=== PATIENT | female | born 1980 | race Caucasian/White ===

== ENCOUNTER 2019-10-09 16:19 | Outpatient (CLI) | payer OTHER ==
[2019-10-09] MEDS ORDERED: GADOTERATE 5 MMOL/10 ML VIAL ONE (17:06)
== END 2019-10-09 23:59 | disposition home or self-care (01) ==
LOC: RAD 16:19
PROVIDERS: ATTEND Radiology Diagnostic Radiology
DX: C79.31 Secondary malignant neoplasm of brain (principal)
CPT/HCPCS: 70553; A9575

== ENCOUNTER 2020-01-11 15:00 | Inpatient (IN) | payer OTHER ==
[~2020-01-11] VITALS: Ht 160 cm; Wt 45.1 kg
[2020-01-11] MEDS ORDERED: LEVETIRACETAM 500 MG TABLET ONE (15:10)
[2020-01-11] MEDS ORDERED: DEXAMETHASONE 4 MG TABLET ONE (15:10)
[2020-01-11] MEDS ORDERED: DEXAMETHASONE 4 MG/ML, 1ML ONE (15:13)
[2020-01-11] MEDS ORDERED: SODIUM CHLORIDE 0.9% 1,000ML IVBOLUS ONE (16:00)
[2020-01-11] MEDS ORDERED: SODIUM CHLORIDE FLUSH 10ML SYR IVF ONE (16:00)
[2020-01-11] MEDS ORDERED: DEXAMETHASONE 4 MG/ML, 1ML IVPush ONE (16:00)
[2020-01-11] MEDS ORDERED: LEVETIRACETAM 1,000 MG in SODIUM CHLORIDE 0.9% 100 ML IV ONE (16:00)
[2020-01-11 16:03] LABS: ALBUMIN 2.6 g/dL (3.4-5.0); ANION GAP 7 mmol/L (5-15); CALCIUM 8.5 mg/dL (8.5-10.1); CHLORIDE 102 mmol/L (98-107)
[2020-01-11 16:06] LABS: ALANINE AMINOTRANSFERASE 19 U/L (12-78); ALKALINE PHOSPHATASE 83 U/L (45-117); BILIRUBIN,TOTAL 0.4 mg/dL (0.2-1.0); CREATININE 0.55 mg/dL (0.55-1.02); TOTAL PROTEIN 6.8 g/dL (6.4-8.2)
[2020-01-11 16:11] LABS: HCG UR SG 1.013 (1.003-1.030)
[2020-01-11 16:12] LABS: MICROSCOPIC INDICATED
--- NOTE | 2020-01-11 16:15 | NUR ---
ANGELO INFUSED, NS BOLUS PER MAR. DURBIN IN ROOM FOR EVAL. PT TO MRI.
--- NOTE | 2020-01-11 16:19 | NUR ---
LAB CALLED CRITICAL PLATELETS OF [phone],000
[2020-01-11 16:20] LABS: MD YES; MEAN CORPUSCULAR HEMOGLOBIN 32.1 pg (27.0-34.8); MEAN CORPUSCULAR HGB CONC 33.6 g/dL (32.4-35.8); MEAN CORPUSCULAR VOLUME 95.5 fL (80-100); MEAN PLATELET VOLUME 8.1 fL (7.4-10.4); RED BLOOD COUNT 2.97 x10^6/uL (3.82-5.3); RED CELL DISTRIBUTION WIDTH 18.2 % (9.6-15.2)
[2020-01-11 16:20] LABS: CULTURE INDICATED? NO
[2020-01-11 16:23] LABS: PLATELET COUNT 41 x10^3/uL (130-400)
--- NOTE | 2020-01-11 16:23 | NUR ---
Patient out of room, into MRI. Finished antiepileptic medication. Awaiting MRI read.
[2020-01-11 16:26] LABS: BAND#(MANUAL) 0.94 x10^3/uL; BANDS%(MANUAL) 26 % (0-7); LYMPH#(MANUAL) 0.04 x10^3/uL (1-3.4); LYMPHS% (MANUAL) 1 % (22-44); MONOS#(MANUAL) 0.07 x10^3/uL (0.3-2.7); MONOS% (MANUAL) 2 % (2-9); SEG#(MANUAL) 2.56 x10^3/uL (1.8-6.8); SEGS% (MANUAL) 71 % (42-75)
[2020-01-11 16:28] LABS: <PLATELET ESTIMATE> DECREASED; <PLT MORPHOLOGY> NORMAL PLT MORPH; ANISOCYTOSIS 1+; POLYCHROMASIA 1+
--- NOTE | 2020-01-11 18:06 | NUR ---
Provider at bedside, updated patient on readings for MRI. Informed of admission. Awaiting disposition
--- NOTE | 2020-01-11 18:12 | NUR ---
Dr. Mendoza at [facility] paged for Dr. Carlos. Awaiting call back.
--- NOTE | 2020-01-11 18:27 | NUR ---
Dr. Mendoza's office called back, spoke with Dr. Carlos.
[2020-01-11] MEDS ORDERED: CEFTRIAXONE PMX 1GM/50ML 50 ML IV ONE (19:00)
--- NOTE | 2020-01-11 19:01 | NUR ---
Gave report to Nelida. awaiting admission to medical oncology floor.
--- NOTE | 2020-01-11 19:07 | NUR ---
PT RESTING ON GURNEY, REPORTS 0/10 PAIN, DENIES ANY NEEDS AT THIS TIME. PT UPDATED ON POC. LAB IN ROOM TO DRAW BLOOD CULTURES AT THIS TIME. CALL LIGHT WITHIN REACH, X2 RAILS RAISED AND PADDED SEIZURE PRECAUTIONS IN PLACE. MONITORING IN PLACE.
[2020-01-11] MEDS ORDERED: CEFTRIAXONE PMX 1GM/50ML 50 ML ONE (19:19)
[2020-01-11] MEDS ORDERED: LEVETIRACETAM 500 MG in SODIUM CHLORIDE 0.9% 100 ML IV SCH (19:30)
[2020-01-11 20:30] VITALS: BP 90/65
[2020-01-11] MEDS ORDERED: ACETAMINOPHEN 325 MG TABLET PO PRN (20:30)
[2020-01-11] MEDS ORDERED: POLYETHYLENE GLYCOL 17 GM PACKET PO PRN (20:30)
[2020-01-11] MEDS ORDERED: BISACODYL 10 MG SUPP PR PRN (20:30)
[2020-01-11] MEDS ORDERED: DOCUSATE 100 MG CAPSULE PO PRN (20:30)
[2020-01-11] MEDS ORDERED: morphine SULFATE 10 MG/ML, 1ML IVPush PRN (20:30)
[2020-01-11] MEDS ORDERED: HYDROcodone/APAP 5/325 TABLET PO PRN (20:30)
[2020-01-11] MEDS ORDERED: ASPI-515 PO (21:35)
[2020-01-11] MEDS ORDERED: DOXE10OR2 NG (21:35)
[2020-01-11] MEDS ORDERED: GABA300S PO/NG (21:35)
[2020-01-11] MEDS ORDERED: VITA100C8 NG (21:35)
[2020-01-11] MEDS ORDERED: MELA10TA10 NG (21:35)
[2020-01-11] MEDS ORDERED: PENT400T12 PO (21:35)
[2020-01-11] MEDS ORDERED: LEVE500S9 NG (21:35)
[2020-01-11] MEDS ORDERED: DEXA10PO2 NG (21:35)
[2020-01-11] MEDS: DEXAMETHASONE 4 MG/ML, 1ML IVPush SCH (22:30)
[2020-01-11] MEDS: MELATONIN 5 MG TABLET NG SCH (22:30)
[2020-01-11] MEDS ORDERED: KETOROLAC 30 MG/1 ML IVPush SCH (23:00)
[2020-01-12] VITALS (7 sets, daily range): BP systolic 83–104; BP diastolic 54–71
[2020-01-12] MEDS: HYDROcodone/APAP 7.5-325MG/15ML UDC PO PRN ×4 (00:40→20:04)
[2020-01-12] MEDS: DEXAMETHASONE 4 MG/ML, 1ML IVPush SCH ×4 (04:18→21:53)
[2020-01-12] MEDS: LEVETIRACETAM 500 MG in SODIUM CHLORIDE 0.9% 100 ML IV SCH ×2 (04:18→16:15)
[2020-01-12] MEDS ORDERED: DIAZEPAM 5 MG/ML, 2ML IVPush PRN (05:00)
[2020-01-12] MEDS ORDERED: DIAZEPAM 5 MG/ML, 2ML IV ONE (05:00)
[2020-01-12] MEDS ORDERED: KETOROLAC 30 MG/1 ML IVPush PRN (05:00)
[2020-01-12 05:24] LABS: MEAN CORPUSCULAR HGB CONC 33.5 g/dL (32.4-35.8); MEAN CORPUSCULAR VOLUME 95.7 fL (80-100); RED BLOOD COUNT 2.51 x10^6/uL (3.82-5.3); RED CELL DISTRIBUTION WIDTH 17.8 % (9.6-15.2)
[2020-01-12 05:25] LABS: ALANINE AMINOTRANSFERASE 16 U/L (12-78); ALBUMIN 2.3 g/dL (3.4-5.0); ANION GAP 5 mmol/L (5-15); CALCIUM 8.7 mg/dL (8.5-10.1); CHLORIDE 104 mmol/L (98-107)
[2020-01-12 05:36] LABS: ALKALINE PHOSPHATASE 59 U/L (45-117); BILIRUBIN,TOTAL 0.3 mg/dL (0.2-1.0); CREATININE 0.35 mg/dL (0.55-1.02); TOTAL PROTEIN 6.1 g/dL (6.4-8.2)
[2020-01-12 05:59] LABS: MD YES
[2020-01-12 06:01] LABS: ANISOCYTOSIS 1+; BAND#(MANUAL) 0.19 x10^3/uL; BANDS%(MANUAL) 8 % (0-7); LYMPH#(MANUAL) 0.19 x10^3/uL (1-3.4); LYMPHS% (MANUAL) 8 % (22-44); MONOS#(MANUAL) 0.07 x10^3/uL (0.3-2.7); MONOS% (MANUAL) 3 % (2-9); POLYCHROMASIA 1+; SEG#(MANUAL) 1.94 x10^3/uL (1.8-6.8); SEGS% (MANUAL) 81 % (42-75)
[2020-01-12 06:02] LABS: <PLATELET ESTIMATE> DECREASED; <PLT MORPHOLOGY> NORMAL PLT MORPH; MEAN PLATELET VOLUME 8.8 fL (7.4-10.4)
[2020-01-12 06:04] LABS: PLATELET COUNT 26 x10^3/uL (130-400)
[2020-01-12] MEDS: VITAMIN E 400 UNITS CAPSULE NG SCH (07:50)
[2020-01-12] MEDS: GABAPENTIN 300 MG CAPSULE PO SCH ×3 (07:50→20:04)
[2020-01-12 08:58] LABS: INTERNATIONAL NORMALIZED RATIO 1.05 (0.93-1.1); PROTHROMBIN TIME 11.1 Seconds (9.6-11.5)
[2020-01-12] MEDS ORDERED: PENTOXIFYLLINE 400 MG TABLET.ER PO SCH (09:00)
[2020-01-12] MEDS ORDERED: ASPIRIN 81 MG TABLET EC PO SCH (09:00)
[2020-01-12] MEDS: TBO-FILGRASTIM 300 MCG/0.5 ML SQ SCH (09:33)
[2020-01-12 16:46] LABS: MEAN CORPUSCULAR HEMOGLOBIN 32.4 pg (27.0-34.8); MEAN CORPUSCULAR HGB CONC 33.8 g/dL (32.4-35.8); MEAN CORPUSCULAR VOLUME 95.9 fL (80-100); PLATELET COUNT 26 x10^3/uL (130-400); RED BLOOD COUNT 2.42 x10^6/uL (3.82-5.3); RED CELL DISTRIBUTION WIDTH 17.9 % (9.6-15.2)
[2020-01-12 16:48] LABS: MD YES
[2020-01-12 16:52] LABS: BAND#(MANUAL) 0.43 x10^3/uL; BANDS%(MANUAL) 16 % (0-7); LYMPH#(MANUAL) 0.22 x10^3/uL (1-3.4); LYMPHS% (MANUAL) 8 % (22-44); MONOS#(MANUAL) 0.19 x10^3/uL (0.3-2.7); MONOS% (MANUAL) 7 % (2-9); NRBC % (MANUAL) 1 % (0-1); SEG#(MANUAL) 1.86 x10^3/uL (1.8-6.8); SEGS% (MANUAL) 69 % (42-75)
[2020-01-12 16:53] LABS: <PLATELET ESTIMATE> DECREASED; <PLT MORPHOLOGY> NORMAL PLT MORPH; ANISOCYTOSIS 1+; POLYCHROMASIA 1+
[2020-01-12 16:54] LABS: TOXIC GRAN 1+
[2020-01-12] MEDS: DOXEPIN 10 MG CAPSULE NG SCH (20:04)
[2020-01-12] MEDS: MELATONIN 5 MG TABLET NG SCH (20:05)
[2020-01-13 02:33] VITALS: BP 95/61
[2020-01-13] MEDS: HYDROcodone/APAP 7.5-325MG/15ML UDC PO PRN ×2 (02:44→15:36)
[2020-01-13] MEDS: LEVETIRACETAM 500 MG in SODIUM CHLORIDE 0.9% 100 ML IV SCH ×2 (04:13→15:43)
[2020-01-13] MEDS: DEXAMETHASONE 4 MG/ML, 1ML IVPush SCH ×4 (04:14→22:13)
[2020-01-13 06:57] VITALS: BP 109/72
[2020-01-13] MEDS: VITAMIN E 400 UNITS CAPSULE NG SCH (09:00)
[2020-01-13] MEDS ORDERED: PANTOPRAZOLE 40MG TABLET PO SCH (09:00)
[2020-01-13] MEDS: TBO-FILGRASTIM 300 MCG/0.5 ML SQ SCH (09:00)
[2020-01-13] MEDS ORDERED: LOPERAMIDE 2 MG CAPSULE PO PRN (09:00)
[2020-01-13] MEDS ORDERED: LOPERAMIDE 1 MG/5 ML, 10ML UDC NG PRN (09:00)
[2020-01-13] MEDS: GABAPENTIN 300 MG CAPSULE PO SCH ×3 (09:11→20:39)
[2020-01-13] MEDS: PANTOPRAZOLE 40 MG IV IVPush SCH (09:11)
[2020-01-13] MEDS: LORazepam 1MG TABLET NG PRN ×3 (09:19→20:46)
[2020-01-13 09:55] LABS: MEAN CORPUSCULAR HEMOGLOBIN 32.3 pg (27.0-34.8); MEAN CORPUSCULAR HGB CONC 33.2 g/dL (32.4-35.8); MEAN CORPUSCULAR VOLUME 97.5 fL (80-100); MEAN PLATELET VOLUME 8.8 fL (7.4-10.4); RED BLOOD COUNT 2.81 x10^6/uL (3.82-5.3); RED CELL DISTRIBUTION WIDTH 18.1 % (9.6-15.2)
[2020-01-13 10:03] LABS: PLATELET COUNT 27 x10^3/uL (130-400)
[2020-01-13 10:07] LABS: MD YES
[2020-01-13 10:12] LABS: ANISOCYTOSIS 1+; BAND#(MANUAL) 0.14 x10^3/uL; BANDS%(MANUAL) 5 % (0-7); LYMPH#(MANUAL) 0.34 x10^3/uL (1-3.4); LYMPHS% (MANUAL) 12 % (22-44); MONOS#(MANUAL) 0.03 x10^3/uL (0.3-2.7); MONOS% (MANUAL) 1 % (2-9); SEGS% (MANUAL) 82 % (42-75)
[2020-01-13 10:13] LABS: <PLATELET ESTIMATE> DECREASED; <PLT MORPHOLOGY> NORMAL PLT MORPH; POLYCHROMASIA 1+; TOXIC GRAN 1+
[2020-01-13 13:00] VITALS: BP 97/67
[2020-01-13] MEDS ORDERED: ALUMINUM/MAG/SIMETHICONE 30 ML UDC PO PRN (15:30)
[2020-01-13 16:35] LABS: MEAN CORPUSCULAR HEMOGLOBIN 32.5 pg (27.0-34.8); MEAN CORPUSCULAR HGB CONC 33.7 g/dL (32.4-35.8); MEAN CORPUSCULAR VOLUME 96.6 fL (80-100); MEAN PLATELET VOLUME 8.2 fL (7.4-10.4); RED BLOOD COUNT 2.66 x10^6/uL (3.82-5.3); RED CELL DISTRIBUTION WIDTH 18.3 % (9.6-15.2)
[2020-01-13 16:49] LABS: PLATELET COUNT 32 x10^3/uL (130-400)
[2020-01-13 17:28] LABS: MD YES
[2020-01-13 17:31] LABS: BAND#(MANUAL) 0.43 x10^3/uL; BANDS%(MANUAL) 16 % (0-7); LYMPH#(MANUAL) 0.16 x10^3/uL (1-3.4); LYMPHS% (MANUAL) 6 % (22-44); MONOS#(MANUAL) 0.03 x10^3/uL (0.3-2.7); MONOS% (MANUAL) 1 % (2-9); SEG#(MANUAL) 2.08 x10^3/uL (1.8-6.8); SEGS% (MANUAL) 77 % (42-75); TOXIC GRAN 1+
[2020-01-13 17:32] LABS: <PLATELET ESTIMATE> DECREASED; <PLT MORPHOLOGY> NORMAL PLT MORPH; ANISOCYTOSIS 1+; POLYCHROMASIA 1+
[2020-01-13 17:33] LABS: OVALOCYTES 1+; TEAR DROPS 1+
[2020-01-13 20:20] VITALS: BP 96/63
[2020-01-13] MEDS: DOXEPIN 10 MG CAPSULE NG SCH (20:39)
[2020-01-13] MEDS: MELATONIN 5 MG TABLET NG SCH (20:40)
[2020-01-14 02:33] VITALS: BP 105/71
[2020-01-14] MEDS: LEVETIRACETAM 500 MG in SODIUM CHLORIDE 0.9% 100 ML IV SCH ×2 (04:29→14:46)
[2020-01-14] MEDS: DEXAMETHASONE 4 MG/ML, 1ML IVPush SCH ×4 (04:29→19:56)
[2020-01-14 06:07] LABS: MEAN CORPUSCULAR HEMOGLOBIN 32.8 pg (27.0-34.8); MEAN CORPUSCULAR HGB CONC 33.9 g/dL (32.4-35.8); MEAN CORPUSCULAR VOLUME 96.9 fL (80-100); RED BLOOD COUNT 2.35 x10^6/uL (3.82-5.3); RED CELL DISTRIBUTION WIDTH 18.4 % (9.6-15.2)
[2020-01-14 06:12] LABS: ALANINE AMINOTRANSFERASE 13 U/L (12-78); ALBUMIN 2.4 g/dL (3.4-5.0); ANION GAP 6 mmol/L (5-15); CALCIUM 8.8 mg/dL (8.5-10.1); CHLORIDE 102 mmol/L (98-107)
[2020-01-14 06:14] LABS: ALKALINE PHOSPHATASE 58 U/L (45-117); BILIRUBIN,TOTAL 0.5 mg/dL (0.2-1.0)
[2020-01-14 06:44] LABS: MD YES
[2020-01-14 06:45] LABS: MEAN PLATELET VOLUME 8.6 fL (7.4-10.4)
[2020-01-14 06:47] LABS: PLATELET COUNT 24 x10^3/uL (130-400)
[2020-01-14 06:48] LABS: <PLATELET ESTIMATE> DECREASED; <PLT MORPHOLOGY> NORMAL PLT MORPH; ANISOCYTOSIS 1+; BAND#(MANUAL) 0.06 x10^3/uL; BANDS%(MANUAL) 3 % (0-7); EOS#(MANUAL) 0.04 x10^3/uL (0.0-0.4); EOS% (MANUAL) 2 % (1-7); LYMPH#(MANUAL) 0.34 x10^3/uL (1-3.4); LYMPHS% (MANUAL) 17 % (22-44); OVALOCYTES 1+; POLYCHROMASIA 1+; SEG#(MANUAL) 1.56 x10^3/uL (1.8-6.8); SEGS% (MANUAL) 78 % (42-75); TOXIC GRAN 1+
[2020-01-14 06:49] LABS: TEAR DROPS 1+
[2020-01-14 07:06] VITALS: BP 98/62
[2020-01-14] MEDS: VITAMIN E 400 UNITS CAPSULE NG SCH (07:58)
[2020-01-14] MEDS: LORazepam 1MG TABLET NG PRN ×3 (08:09→19:59)
[2020-01-14] MEDS: PANTOPRAZOLE 40 MG IV IVPush SCH (08:10)
[2020-01-14] MEDS: GABAPENTIN 300 MG CAPSULE PO SCH ×3 (08:10→19:56)
[2020-01-14] MEDS: HYDROcodone/APAP 7.5-325MG/15ML UDC PO PRN ×3 (09:40→20:52)
[2020-01-14 12:26] VITALS: BP 96/59
[2020-01-14 17:28] LABS: MEAN CORPUSCULAR HEMOGLOBIN 32.1 pg (27.0-34.8); MEAN CORPUSCULAR HGB CONC 33.4 g/dL (32.4-35.8); MEAN CORPUSCULAR VOLUME 96.1 fL (80-100); MEAN PLATELET VOLUME 8.7 fL (7.4-10.4); RED BLOOD COUNT 2.36 x10^6/uL (3.82-5.3); RED CELL DISTRIBUTION WIDTH 18.1 % (9.6-15.2)
[2020-01-14 17:31] LABS: PLATELET COUNT 28 x10^3/uL (130-400)
[2020-01-14 17:38] LABS: MD YES
[2020-01-14 17:47] LABS: ANISOCYTOSIS 1+; BAND#(MANUAL) 0.16 x10^3/uL; BANDS%(MANUAL) 7 % (0-7); EOS#(MANUAL) 0.07 x10^3/uL (0.0-0.4); EOS% (MANUAL) 3 % (1-7); LYMPH#(MANUAL) 0.14 x10^3/uL (1-3.4); LYMPHS% (MANUAL) 6 % (22-44); MONOS#(MANUAL) 0.02 x10^3/uL (0.3-2.7); MONOS% (MANUAL) 1 % (2-9); OVALOCYTES 1+; POLYCHROMASIA 1+; SEG#(MANUAL) 1.91 x10^3/uL (1.8-6.8); SEGS% (MANUAL) 83 % (42-75)
[2020-01-14 17:48] LABS: <PLATELET ESTIMATE> DECREASED; <PLT MORPHOLOGY> NORMAL PLT MORPH; TEAR DROPS 1+; TOXIC GRAN 1+
[2020-01-14 19:05] VITALS: BP 102/65
[2020-01-14] MEDS: MELATONIN 5 MG TABLET NG SCH (19:50)
[2020-01-14] MEDS: DOXEPIN 10 MG CAPSULE NG SCH (19:56)
[2020-01-15 02:59] VITALS: BP 105/69
[2020-01-15] MEDS: DEXAMETHASONE 4 MG/ML, 1ML IVPush SCH ×3 (03:21→23:04)
[2020-01-15] MEDS: LORazepam 1MG TABLET NG PRN ×4 (03:21→20:50)
[2020-01-15] MEDS: LEVETIRACETAM 500 MG in SODIUM CHLORIDE 0.9% 100 ML IV SCH ×2 (03:21→16:51)
[2020-01-15 05:24] LABS: ALBUMIN 2.3 g/dL (3.4-5.0); CHLORIDE 103 mmol/L (98-107)
[2020-01-15 05:32] LABS: ALANINE AMINOTRANSFERASE 12 U/L (12-78); ALKALINE PHOSPHATASE 53 U/L (45-117); ANION GAP 5 mmol/L (5-15); BILIRUBIN,TOTAL 0.5 mg/dL (0.2-1.0); CALCIUM 8.4 mg/dL (8.5-10.1); CREATININE 0.34 mg/dL (0.55-1.02); TOTAL PROTEIN 5.8 g/dL (6.4-8.2)
[2020-01-15 05:39] LABS: MEAN CORPUSCULAR HEMOGLOBIN 32.5 pg (27.0-34.8); MEAN CORPUSCULAR HGB CONC 33.7 g/dL (32.4-35.8); MEAN CORPUSCULAR VOLUME 96.6 fL (80-100); MEAN PLATELET VOLUME 8.4 fL (7.4-10.4); RED BLOOD COUNT 2.31 x10^6/uL (3.82-5.3)
[2020-01-15 05:42] LABS: PLATELET COUNT 37 x10^3/uL (130-400)
[2020-01-15 06:17] LABS: MD YES
[2020-01-15 06:22] LABS: BAND#(MANUAL) 0.14 x10^3/uL; BANDS%(MANUAL) 8 % (0-7); EOS#(MANUAL) 0.04 x10^3/uL (0.0-0.4); EOS% (MANUAL) 2 % (1-7); LYMPH#(MANUAL) 0.41 x10^3/uL (1-3.4); LYMPHS% (MANUAL) 23 % (22-44); MONOS#(MANUAL) 0.04 x10^3/uL (0.3-2.7); MONOS% (MANUAL) 2 % (2-9); SEG#(MANUAL) 1.17 x10^3/uL (1.8-6.8); SEGS% (MANUAL) 65 % (42-75)
[2020-01-15 06:23] LABS: ANISOCYTOSIS 2+; OVALOCYTES 1+
[2020-01-15 06:24] LABS: <PLATELET ESTIMATE> DECREASED; <PLT MORPHOLOGY> NORMAL PLT MORPH
[2020-01-15 06:25] LABS: TOXIC GRAN 1+
[2020-01-15 06:48] VITALS: BP 106/67
[2020-01-15] MEDS: HYDROcodone/APAP 7.5-325MG/15ML UDC PO PRN ×3 (07:12→21:19)
[2020-01-15] MEDS: VITAMIN E 400 UNITS CAPSULE NG SCH (09:11)
[2020-01-15] MEDS: PANTOPRAZOLE 40 MG IV IVPush SCH (09:11)
[2020-01-15] MEDS: GABAPENTIN 300 MG CAPSULE PO SCH ×3 (09:12→23:03)
[2020-01-15] MEDS ORDERED: DEXAMETHASONE 4 MG/ML, 1ML IVPush SCH (11:30)
[2020-01-15] MEDS: SODIUM CHLORIDE 1 GM TABLET PO SCH ×3 (12:30→23:00)
[2020-01-15 12:46] VITALS: BP 106/65
[2020-01-15 16:25] LABS: MEAN CORPUSCULAR VOLUME 97.1 fL (80-100); RED BLOOD COUNT 2.53 x10^6/uL (3.82-5.3)
[2020-01-15 16:26] LABS: RED CELL DISTRIBUTION WIDTH 18.1 % (9.6-15.2)
[2020-01-15 16:28] LABS: MD YES; MEAN PLATELET VOLUME 7.9 fL (7.4-10.4); PLATELET COUNT 45 x10^3/uL (130-400)
[2020-01-15 16:33] LABS: BAND#(MANUAL) 0.17 x10^3/uL; BANDS%(MANUAL) 7 % (0-7); LYMPH#(MANUAL) 0.22 x10^3/uL (1-3.4); LYMPHS% (MANUAL) 9 % (22-44); MONOS#(MANUAL) 0.14 x10^3/uL (0.3-2.7); MONOS% (MANUAL) 6 % (2-9); NRBC % (MANUAL) 1 % (0-1); SEG#(MANUAL) 1.87 x10^3/uL (1.8-6.8); SEGS% (MANUAL) 78 % (42-75)
[2020-01-15 16:34] LABS: <PLATELET ESTIMATE> DECREASED; <PLT MORPHOLOGY> NORMAL PLT MORPH; ANISOCYTOSIS 1+; OVALOCYTES 1+; POLYCHROMASIA 1+; TOXIC GRAN 1+
[2020-01-15 19:03] VITALS: BP 96/63
[2020-01-15] MEDS: MELATONIN 5 MG TABLET NG SCH (19:36)
[2020-01-15] MEDS: DOXEPIN 10 MG CAPSULE NG SCH (19:57)
[2020-01-16 01:09] VITALS: BP 102/66
[2020-01-16] MEDS: LORazepam 1MG TABLET NG PRN ×3 (02:32→11:56)
[2020-01-16] MEDS: LEVETIRACETAM 500 MG in SODIUM CHLORIDE 0.9% 100 ML IV SCH (04:59)
[2020-01-16] MEDS: DEXAMETHASONE 4 MG/ML, 1ML IVPush SCH ×2 (04:59→11:12)
[2020-01-16 05:27] LABS: MEAN CORPUSCULAR HEMOGLOBIN 32.5 pg (27.0-34.8); MEAN CORPUSCULAR HGB CONC 33.3 g/dL (32.4-35.8); MEAN CORPUSCULAR VOLUME 97.6 fL (80-100); RED BLOOD COUNT 2.45 x10^6/uL (3.82-5.3); RED CELL DISTRIBUTION WIDTH 17.9 % (9.6-15.2)
[2020-01-16 05:57] LABS: MEAN PLATELET VOLUME 7.8 fL (7.4-10.4)
[2020-01-16 05:58] LABS: MD YES
[2020-01-16 06:10] LABS: BAND#(MANUAL) 0.05 x10^3/uL; BANDS%(MANUAL) 3 % (0-7); LYMPH#(MANUAL) 0.23 x10^3/uL (1-3.4); LYMPHS% (MANUAL) 13 % (22-44); MONOS#(MANUAL) 0.04 x10^3/uL (0.3-2.7); MONOS% (MANUAL) 2 % (2-9); NRBC % (MANUAL) 1 % (0-1); SEG#(MANUAL) 1.48 x10^3/uL (1.8-6.8); SEGS% (MANUAL) 82 % (42-75)
[2020-01-16 06:11] LABS: ANISOCYTOSIS 1+; OVALOCYTES 1+; POLYCHROMASIA 1+; TOXIC GRAN 1+
[2020-01-16 06:12] LABS: <PLATELET ESTIMATE> DECREASED; <PLT MORPHOLOGY> NORMAL PLT MORPH
[2020-01-16 06:13] LABS: PLATELET COUNT 42 x10^3/uL (130-400)
[2020-01-16 06:43] VITALS: BP 99/59
[2020-01-16 07:25] LABS: ALBUMIN 2.3 g/dL (3.4-5.0); ANION GAP 6 mmol/L (5-15); CALCIUM 8.7 mg/dL (8.5-10.1); CHLORIDE 104 mmol/L (98-107)
[2020-01-16 07:28] LABS: ALANINE AMINOTRANSFERASE 14 U/L (12-78); ALKALINE PHOSPHATASE 55 U/L (45-117); BILIRUBIN,TOTAL 0.3 mg/dL (0.2-1.0); CREATININE 0.39 mg/dL (0.55-1.02); TOTAL PROTEIN 5.9 g/dL (6.4-8.2)
[2020-01-16] MEDS: GABAPENTIN 300 MG CAPSULE PO SCH (08:04)
[2020-01-16] MEDS: VITAMIN E 400 UNITS CAPSULE NG SCH (08:04)
[2020-01-16] MEDS: PANTOPRAZOLE 40 MG IV IVPush SCH (08:04)
[2020-01-16] MEDS: SODIUM CHLORIDE 1 GM TABLET PO SCH (08:04)
[2020-01-16] MEDS ORDERED: LORA-446 NG (09:29)
[2020-01-16] MEDS ORDERED: LEVE500S9 NG (09:29)
[2020-01-16] MEDS ORDERED: DEXA6TAB6 NG (09:29)
[2020-01-16] MEDS ORDERED: SODI1TAB PO (09:29)
[2020-01-16] MEDS ORDERED: GABA250S3 NG (09:29)
== END 2020-01-16 12:26 | disposition home or self-care (01) | DRG 100 ==
LOC: ED 16:05 → 3N 21:02
PROVIDERS: ADMIT Family Medicine; ATTEND Family Medicine
PROC: 30233R1 Transfusion of Nonautologous Platelets into Peripheral Vein, Percutaneous Approach (ICD-10-PCS; principal; 2020-01-12)
DX: G40.909 Epilepsy, unspecified, not intractable, without status epilepticus (principal); G93.6 Cerebral edema; C79.31 Secondary malignant neoplasm of brain; E87.1 Hypo-osmolality and hyponatremia; E44.0 Moderate protein-calorie malnutrition; C02.9 Malignant neoplasm of tongue, unspecified; D70.1 Agranulocytosis secondary to cancer chemotherapy; D69.59 Other secondary thrombocytopenia; D64.81 Anemia due to antineoplastic chemotherapy; F41.9 Anxiety disorder, unspecified; T45.1X5A Adverse effect of antineoplastic and immunosuppressive drugs, initial encounter; Z51.5 Encounter for palliative care; Z80.1 Family history of malignant neoplasm of trachea, bronchus and lung; Z85.810 Personal history of malignant neoplasm of tongue; Z85.841 Personal history of malignant neoplasm of brain; Z85.89 Personal history of malignant neoplasm of other organs and systems; Y92.89 Other specified places as the place of occurrence of the external cause
CPT/HCPCS: 36415; 70551; 80053; 81001; 81025; 83605; 83735; 84100; 84443; 85025; 85384; 85610; 85730; 86900; 87040; 96365; 96375; G0378; J0696; J1100; J1885; J1953; C9113; J7030; P9035

== ENCOUNTER 2020-01-21 17:28 | Inpatient (IN) | payer OTHER ==
[~2020-01-21] VITALS: Ht 160 cm; Wt 44.0 kg
[~2020-01-21 17:28] MED LIST: ASPI-515 PO; DEXA10PO2 NG; DEXA6TAB6 NG; DOXE10OR2 NG; GABA250S3 NG; GABA300S PO/NG; LEVE500S9 NG; LORA-446 NG; MELA10TA10 NG; PENT400T12 PO; SODI1TAB PO; VITA100C8 NG
--- NOTE | 2020-01-21 18:27 | NUR ---
weight verified with pt per pharmacy request. pharmacy aware that weight documented weight is correct.
[2020-01-21] MEDS ORDERED: PHARMACOKINETIC MONITORING MC PRN (18:30)
[2020-01-21] MEDS ORDERED: CEFTRIAXONE PMX 1GM/50ML 50 ML IVPB ONE (18:30)
[2020-01-21] MEDS ORDERED: SODIUM CHLORIDE 0.9% 1,000ML IVBOLUS ONE (18:30)
[2020-01-21] MEDS ORDERED: PHARMACOKINETIC CONSULTATION MC ONE (18:30)
[2020-01-21] MEDS ORDERED: VANCOMYCIN PER PHARMACY MC ONE (18:30)
[2020-01-21 18:38] LABS: MEAN CORPUSCULAR HEMOGLOBIN 32.2 pg (27.0-34.8); MEAN CORPUSCULAR HGB CONC 33.5 g/dL (32.4-35.8); MEAN CORPUSCULAR VOLUME 96.2 fL (80-100); MEAN PLATELET VOLUME 7.6 fL (7.4-10.4); PLATELET COUNT 167 x10^3/uL (130-400); RED BLOOD COUNT 2.68 x10^6/uL (3.82-5.3); RED CELL DISTRIBUTION WIDTH 19.4 % (9.6-15.2)
[2020-01-21] MEDS ORDERED: CEFTRIAXONE PMX 1GM/50ML 50 ML ONE (18:39)
[2020-01-21 18:46] LABS: ALBUMIN 2.1 g/dL (3.4-5.0); ANION GAP 8 mmol/L (5-15); CHLORIDE 102 mmol/L (98-107); CREATININE 0.43 mg/dL (0.55-1.02)
[2020-01-21] MEDS: VANCOMYCIN IV SCH (19:30)
[2020-01-21] MEDS ORDERED: MAALOX/HYOSCYAMINE/LIDOCAINE 45 ML BTL PO ONE (19:30)
[2020-01-21] MEDS: SODIUM CHLORIDE 0.9% IV SCH (19:30)
[2020-01-21] MEDS ORDERED: MAALOX/HYOSCYAMINE/LIDOCAINE 45 ML BTL ONE (19:52)
[2020-01-21] MEDS ORDERED: LORazepam 1MG TABLET PO ONE (20:00)
[2020-01-21] MEDS ORDERED: DEXAMETHASONE 4 MG TABLET PO ONE (20:00)
[2020-01-21 20:17] LABS: MD YES
[2020-01-21 20:26] LABS: BAND#(MANUAL) 1.02 x10^3/uL; BANDS%(MANUAL) 35 % (0-7); LYMPH#(MANUAL) 0.15 x10^3/uL (1-3.4); LYMPHS% (MANUAL) 5 % (22-44); METAMYELOCYTES# (MANUAL) 0.03 x10^3/uL (0-0); METAMYELOCYTES% (MANUAL) 1 % (0-1); MONOS#(MANUAL) 0.23 x10^3/uL (0.3-2.7); MONOS% (MANUAL) 8 % (2-9); MYELOCYTES# (MANUAL) 0.03 x10^3/uL (0-0); MYELOCYTES% (MANUAL) 1 % (0-0); NRBC % (MANUAL) 1 % (0-1); SEG#(MANUAL) 1.45 x10^3/uL (1.8-6.8); SEGS% (MANUAL) 50 % (42-75)
[2020-01-21 20:29] LABS: OVALOCYTES 1+; POLYCHROMASIA 1+
[2020-01-21] MEDS ORDERED: ONDANSETRON 2MG/ML, 2ML IVPush ONE (20:30)
[2020-01-21 20:31] LABS: <PLATELET ESTIMATE> ADEQUATE; TEAR DROPS 1+
[2020-01-21 20:32] LABS: <PLT MORPHOLOGY> NORMAL PLT MORPH; TOXIC GRAN 1+
[2020-01-21] MEDS ORDERED: DEXAMETHASONE 4 MG/ML, 5ML ONE (20:34)
[2020-01-21] MEDS ORDERED: ONDANSETRON 2MG/ML, 2ML ONE (20:34)
[2020-01-21] MEDS ORDERED: LORazepam 2 MG/ML, 1ML ONE (20:35)
[2020-01-21] MEDS ORDERED: LORazepam 2 MG/ML, 1ML IVPush ONE (21:00)
[2020-01-21] MEDS ORDERED: DEXAMETHASONE 4 MG/ML, 1ML IVPush ONE (21:00)
--- NOTE | 2020-01-21 21:00 | NUR ---
REPORT FROM SHAE JOSHI. PT RESTING WITH NO NEEDS AT THIS TIME. SPOUSE AT BEDSIDE. CALLLIGHT IN REACH
[2020-01-21 23:19] VITALS: BP 94/64
[2020-01-22] MEDS ORDERED: LIDODERM 5% PATCH TD PRN
[2020-01-22] MEDS ORDERED: morphine SULFATE 10 MG/ML, 1ML IVPush PRN
[2020-01-22] MEDS ORDERED: POLYETHYLENE GLYCOL 17 GM PACKET NG PRN
[2020-01-22] MEDS ORDERED: PROMETHAZINE 25 MG/ML, 1ML IM PRN
[2020-01-22] MEDS ORDERED: ONDANSETRON 2MG/ML, 2ML IVPush PRN
[2020-01-22] MEDS ORDERED: VANCOMYCIN PER PHARMACY MC PRN
[2020-01-22] MEDS ORDERED: hydrALAzine 20 MG/ML, 1ML IVPush PRN
[2020-01-22] MEDS: LORazepam 2 MG/ML, 1ML IVPush PRN ×4 (00:40→20:48)
[2020-01-22] MEDS: LACTATED RINGERS 1,000 ML IV SCH ×2 (00:40→08:44)
[2020-01-22] MEDS: PIPERACILLIN/TAZO/PMX 3.375GM 50 ML IV SCH ×4 (00:41→19:42)
[2020-01-22] MEDS: DOXEPIN 10 MG CAPSULE NG SCH ×2 (00:43→20:48)
[2020-01-22] MEDS ORDERED: ALBUTEROL SULFATE 2.5 MG/3 ML NPPB PRN (01:00)
[2020-01-22] MEDS: VANCOMYCIN IV SCH ×3 (04:22→20:31)
[2020-01-22] MEDS: SODIUM CHLORIDE 0.9% IV SCH ×3 (04:22→20:31)
[2020-01-22 05:34] LABS: ANION GAP 5 mmol/L (5-15); CALCIUM 8.6 mg/dL (8.5-10.1); CHLORIDE 104 mmol/L (98-107); CREATININE 0.32 mg/dL (0.55-1.02)
[2020-01-22 05:44] LABS: MEAN CORPUSCULAR HEMOGLOBIN 32.3 pg (27.0-34.8); MEAN PLATELET VOLUME 7.4 fL (7.4-10.4); PLATELET COUNT 149 x10^3/uL (130-400); RED BLOOD COUNT 2.35 x10^6/uL (3.82-5.3); RED CELL DISTRIBUTION WIDTH 19.4 % (9.6-15.2)
[2020-01-22] MEDS: DEXAMETHASONE 4 MG TABLET NG SCH ×4 (06:05→20:48)
[2020-01-22 06:34] LABS: MD YES
[2020-01-22 06:46] LABS: BAND#(MANUAL) 0.33 x10^3/uL; BANDS%(MANUAL) 15 % (0-7); LYMPH#(MANUAL) 0.24 x10^3/uL (1-3.4); LYMPHS% (MANUAL) 11 % (22-44); METAMYELOCYTES# (MANUAL) 0.02 x10^3/uL (0-0); METAMYELOCYTES% (MANUAL) 1 % (0-1); MONOS#(MANUAL) 0.09 x10^3/uL (0.3-2.7); MONOS% (MANUAL) 4 % (2-9); MYELOCYTES# (MANUAL) 0.02 x10^3/uL (0-0); MYELOCYTES% (MANUAL) 1 % (0-0); SEGS% (MANUAL) 68 % (42-75)
[2020-01-22 06:47] LABS: ANISOCYTOSIS 1+; OVALOCYTES 1+; POLYCHROMASIA 1+
[2020-01-22 06:48] LABS: TEAR DROPS 1+
[2020-01-22 06:49] LABS: <PLATELET ESTIMATE> ADEQUATE; <PLT MORPHOLOGY> NORMAL PLT MORPH; TOXIC GRAN 1+
[2020-01-22 07:15] VITALS: BP 96/58
[2020-01-22] MEDS: SODIUM CHLORIDE 1 GM TABLET NG SCH ×3 (08:44→20:48)
[2020-01-22] MEDS: LEVETIRACETAM 100 MG/ML ORAL SOL NG SCH ×3 (08:45→20:49)
[2020-01-22] MEDS: GABAPENTIN 250 MG/5 ML ORAL SOL NG SCH ×4 (08:45→22:58)
[2020-01-22] MEDS: FAMOTIDINE 40 MG/5 ML ORAL SUSP NG SCH ×3 (08:45→20:49)
[2020-01-22 14:10] VITALS: BP 97/62
[2020-01-22] MEDS ORDERED: GADOTERATE 7.5 MMOL/15 ML VIAL ONE (18:06)
[2020-01-22 18:55] VITALS: BP 100/66
[2020-01-22] MEDS: MELATONIN 5 MG TABLET NG SCH ×2 (22:59)
[2020-01-23] MEDS: LACTATED RINGERS 1,000 ML IV SCH ×3 (01:29→20:00)
[2020-01-23] MEDS: PIPERACILLIN/TAZO/PMX 3.375GM 50 ML IV SCH ×4 (01:30→20:45)
[2020-01-23 01:34] VITALS: BP 101/66
[2020-01-23] MEDS: SODIUM CHLORIDE 0.9% IV SCH ×3 (03:47→22:37)
[2020-01-23] MEDS: VANCOMYCIN IV SCH ×3 (03:47→22:37)
[2020-01-23] MEDS: LORazepam 2 MG/ML, 1ML IVPush PRN ×5 (03:47→20:46)
[2020-01-23] MEDS: DEXAMETHASONE 4 MG TABLET NG SCH ×4 (06:01→20:44)
[2020-01-23 07:27] LABS: MEAN CORPUSCULAR HEMOGLOBIN 32.3 pg (27.0-34.8); MEAN CORPUSCULAR HGB CONC 33.1 g/dL (32.4-35.8); MEAN CORPUSCULAR VOLUME 97.7 fL (80-100); MEAN PLATELET VOLUME 7.5 fL (7.4-10.4); PLATELET COUNT 178 x10^3/uL (130-400); RED BLOOD COUNT 2.22 x10^6/uL (3.82-5.3); RED CELL DISTRIBUTION WIDTH 19.7 % (9.6-15.2)
[2020-01-23 07:29] LABS: INTERNATIONAL NORMALIZED RATIO 1.09 (0.93-1.1); PROTHROMBIN TIME 11.6 Seconds (9.6-11.5)
[2020-01-23] MEDS: SODIUM CHLORIDE 1 GM TABLET NG SCH ×3 (09:05→20:44)
[2020-01-23] MEDS: GABAPENTIN 250 MG/5 ML ORAL SOL NG SCH ×3 (09:05→20:44)
[2020-01-23] MEDS: FAMOTIDINE 40 MG/5 ML ORAL SUSP NG SCH ×2 (09:05→20:43)
[2020-01-23] MEDS: LEVETIRACETAM 100 MG/ML ORAL SOL NG SCH ×2 (09:05→20:44)
[2020-01-23 09:08] VITALS: BP 106/68
[2020-01-23 09:08] LABS: MD YES
[2020-01-23 09:11] LABS: ANISOCYTOSIS 1+; BAND#(MANUAL) 0.14 x10^3/uL; BANDS%(MANUAL) 5 % (0-7); LYMPH#(MANUAL) 0.22 x10^3/uL (1-3.4); LYMPHS% (MANUAL) 8 % (22-44); MONOS#(MANUAL) 0.24 x10^3/uL (0.3-2.7); MONOS% (MANUAL) 9 % (2-9); NRBC % (MANUAL) 1 % (0-1); OVALOCYTES 1+; POLYCHROMASIA 1+; SEG#(MANUAL) 2.11 x10^3/uL (1.8-6.8); SEGS% (MANUAL) 78 % (42-75)
[2020-01-23 09:12] LABS: <PLATELET ESTIMATE> ADEQUATE; <PLT MORPHOLOGY> NORMAL PLT MORPH; TEAR DROPS 1+; TOXIC GRAN 1+
[2020-01-23] MEDS ORDERED: ACETAMINOPHEN 650 MG/20.3 ML UDC ONE ×2 (09:20→15:33)
[2020-01-23] MEDS: ACETAMINOPHEN 325 MG TABLET PO PRN ×2 (09:25→15:37)
[2020-01-23 15:30] VITALS: BP 97/64
[2020-01-23] MEDS ORDERED: OMNIPAQUE 350 MG/ML, 100ML BOTTLE ONE (17:52)
[2020-01-23 19:00] VITALS: BP 100/65
[2020-01-23] MEDS: DOXEPIN 10 MG CAPSULE NG SCH (20:44)
[2020-01-23] MEDS: MELATONIN 5 MG TABLET NG SCH (20:45)
[2020-01-24 00:03] VITALS: BP 100/66
[2020-01-24] MEDS: LORazepam 2 MG/ML, 1ML IVPush PRN ×2 (00:03→10:23)
[2020-01-24] MEDS: PIPERACILLIN/TAZO/PMX 3.375GM 50 ML IV SCH ×2 (02:47→09:49)
[2020-01-24] MEDS: LACTATED RINGERS 1,000 ML IV SCH (02:48)
[2020-01-24 05:05] LABS: CHLORIDE 103 mmol/L (98-107)
[2020-01-24 05:09] LABS: MEAN CORPUSCULAR HEMOGLOBIN 32.1 pg (27.0-34.8); MEAN CORPUSCULAR HGB CONC 33.8 g/dL (32.4-35.8); MEAN CORPUSCULAR VOLUME 95.1 fL (80-100); MEAN PLATELET VOLUME 7.5 fL (7.4-10.4); PLATELET COUNT 190 x10^3/uL (130-400); RED BLOOD COUNT 2.11 x10^6/uL (3.82-5.3); RED CELL DISTRIBUTION WIDTH 19.7 % (9.6-15.2)
[2020-01-24 05:10] LABS: ANION GAP 8 mmol/L (5-15); CREATININE 0.69 mg/dL (0.55-1.02)
[2020-01-24 05:44] LABS: MD YES
[2020-01-24 05:46] LABS: BAND#(MANUAL) 0.23 x10^3/uL; BANDS%(MANUAL) 7 % (0-7); LYMPH#(MANUAL) 0.23 x10^3/uL (1-3.4); LYMPHS% (MANUAL) 7 % (22-44); MONOS#(MANUAL) 0.33 x10^3/uL (0.3-2.7); MONOS% (MANUAL) 10 % (2-9); NRBC % (MANUAL) 3 % (0-1); SEG#(MANUAL) 2.51 x10^3/uL (1.8-6.8); SEGS% (MANUAL) 76 % (42-75)
[2020-01-24 05:47] LABS: ANISOCYTOSIS 1+; OVALOCYTES 1+; POLYCHROMASIA 1+
[2020-01-24 05:48] LABS: <PLATELET ESTIMATE> ADEQUATE; <PLT MORPHOLOGY> NORMAL PLT MORPH; TEAR DROPS 1+; TOXIC GRAN 1+
[2020-01-24] MEDS: DEXAMETHASONE 4 MG TABLET NG SCH ×2 (06:02→10:23)
[2020-01-24 07:53] VITALS: BP 99/64
[2020-01-24] MEDS ORDERED: BACITRACIN 50,000 UNIT ONE (07:59)
[2020-01-24] MEDS ORDERED: BACITRACIN OINT 500U/GM, 15 GM ONE (07:59)
[2020-01-24] MEDS ORDERED: BUPIVACAINE/PF-EPI 0.5% 1:200K ONE (07:59)
[2020-01-24] MEDS ORDERED: THROMBIN 20,000 UNIT VIAL TP ONE (07:59)
[2020-01-24 08:41] LABS: HCG UR SG 1.017 (1.003-1.030)
[2020-01-24] MEDS ORDERED: VANCOMYCIN 900 MG in SODIUM CHLORIDE 0.9% 100 ML IV SCH (10:00)
[2020-01-24] MEDS: GABAPENTIN 250 MG/5 ML ORAL SOL NG SCH (10:22)
[2020-01-24] MEDS: LEVETIRACETAM 100 MG/ML ORAL SOL NG SCH (10:23)
[2020-01-24] MEDS: SODIUM CHLORIDE 1 GM TABLET NG SCH (10:23)
[2020-01-24] MEDS: FAMOTIDINE 40 MG/5 ML ORAL SUSP NG SCH (10:23)
[2020-01-24 12:14] VITALS: BP 97/62
== END 2020-01-24 15:00 | disposition hospice, inpatient (51) | DRG 871 ==
LOC: ED 20:53 → EDIP 21:25 → 3N 23:11
PROVIDERS: ADMIT Family Medicine; ATTEND Family Medicine
DX: A41.9 Sepsis, unspecified organism (principal); E43 Unspecified severe protein-calorie malnutrition; C79.31 Secondary malignant neoplasm of brain; L03.221 Cellulitis of neck; L03.115 Cellulitis of right lower limb; C01 Malignant neoplasm of base of tongue; G40.909 Epilepsy, unspecified, not intractable, without status epilepticus; J45.20 Mild intermittent asthma, uncomplicated; F41.9 Anxiety disorder, unspecified; F32.9 Major depressive disorder, single episode, unspecified; T38.0X5A Adverse effect of glucocorticoids and synthetic analogues, initial encounter; R73.9 Hyperglycemia, unspecified; B96.89 Other specified bacterial agents as the cause of diseases classified elsewhere; Z85.841 Personal history of malignant neoplasm of brain; Z80.1 Family history of malignant neoplasm of trachea, bronchus and lung; Z79.899 Other long term (current) drug therapy; Z79.82 Long term (current) use of aspirin; Y92.89 Other specified places as the place of occurrence of the external cause
CPT/HCPCS: 36415; 70552; 71045; 74177; 80048; 80202; 81025; 82040; 83605; 83735; 84100; 84145; 85014; 85018; 85025; 85610; 85730; 87040; 96361; 96374; 96375; G0378; J0696; J1100; J2405; J2543; J3370; Q9967; A9575; J2060; J2270; J7030; J7120